=== PATIENT | female | born 2000 | race Caucasian/White ===

== ENCOUNTER 2023-06-01 17:47 | Emergency (ER) | payer BC ==
[~2023-06-01] VITALS: Ht 175.3 cm; Wt 61.2 kg
[2023-06-01 17:57] VITALS: BP 134/76; TEMP 98; O2SAT 99
[2023-06-01] MEDS ORDERED: AMOX-430 PO (18:20)
[2023-06-01] MEDS ORDERED: TDAP [DIPH/PERTUSSIS/TET] 0.5 ML VIAL IM ONE ×2 (18:24→18:30)
[2023-06-01] MEDS ORDERED: BACI/NEOM/POLY B OINT PKT 1 UDPKT PACKET TP ONE (18:30)
== END 2023-06-01 18:55 | disposition home or self-care (01) ==
LOC: ER 17:52
DX: S61.032A Puncture wound without foreign body of left thumb without damage to nail, initial encounter (principal); Z60.2 Problems related to living alone; W55.01XA Bitten by cat, initial encounter; Y93.89 Activity, other specified; Y92.89 Other specified places as the place of occurrence of the external cause; Y99.8 Other external cause status
CPT/HCPCS: 90715